=== PATIENT | female | born 1995 | race Caucasian/White ===

== ENCOUNTER 2020-11-24 00:42 | Emergency (ER) | payer MEDICAID ==
[~2020-11-24] VITALS: Ht 157.5 cm; Wt 68.3 kg
[2020-11-24 00:45] VITALS: BP 105/69
[2020-11-24] MEDS ORDERED: PROPARACAINE OPHTH 0.5%, 15ML EACHEYE ONE (01:00)
[2020-11-24] MEDS ORDERED: FLUORESCEIN OPHTHALMIC 1 MG STRIP EACHEYE ONE (01:00)
[2020-11-24] MEDS ORDERED: PROPARACAINE OPHTH 0.5%, 15ML ONE (01:15)
[2020-11-24] MEDS ORDERED: FLUORESCEIN OPHTHALMIC 1 MG STRIP ONE (01:15)
--- NOTE | 2020-11-24 01:55 | NUR ---
Patient given discharge instructions and they have confirmed that they understand the instructions. Patient ambulatory with steady gait. NAD, all questions answered appropriately, denies additional needs at this time. No personal belongings left in room after discharge.
== END 2020-11-24 01:56 | disposition home or self-care (01) ==
LOC: ED 01:00
DX: H18.822 Corneal disorder due to contact lens, left eye (principal); H57.12 Ocular pain, left eye
CPT/HCPCS: 99283